=== PATIENT | male | born 1970 | race African-American/Black ===

== ENCOUNTER 2016-12-12 12:34 | Outpatient (CLI) | payer OTHER ==
--- NOTE | 2016-12-12 14:45 | MRI ---
MRI OF THE LEFT SHOULDER WITHOUT CONTRAST: Date: 12/12/16 INDICATION: Left shoulder pain for 2 months after a fall. COMPARISON: Left shoulder radiograph dated 10/29/16. TECHNIQUE: Multiplanar, multisequence MR images were obtained of the left shoulder without IV contrast. FINDINGS: Motion artifact limits image detail. The supraspinatus, infraspinatus, and teres minor are intact. The subscapularis is intact. The bicep s tendon is located. There is suggestion of some increasing synovial hypertrophy within the anterior superior aspect of the glenohumeral joint near the more medial aspect of the rotator interval and b iceps tendon. There is some subtle increased T2 signal involving the axillary pouch. No interarticul ar body is evident. There is mild AC joint osteoarthrosis. IMPRESSION: 1. Findings suspicious for adhesive capsulitis with increased T2 signal involving the axillary pouc h with some mild synovial hypertrophy seen near the medial aspect of the rotator interval. 2. The rotator cuff is intact. 3. There is mild AC joint osteoarthrosis. POS: [facility]
== END 2016-12-12 12:35 | disposition home or self-care (01) ==
LOC: SCSMRI 12:34
PROVIDERS: ATTEND Orthopaedic Surgery
DX: M25.512 Pain in left shoulder (principal); M19.012 Primary osteoarthritis, left shoulder

== ENCOUNTER 2017-04-04 09:24 | Outpatient (CLI) | payer OTHER ==
[2017-04-04 10:40] LABS: #Basophils 0.1 thou/uL (0.0-0.2); #Eosinphils 0.1 thou/uL (0.0-0.7); #Lymphocytes 1.8 thou/uL (1.20-3.40); #Monocytes 0.5 thou/uL (0.11-0.59); #Neutrophils 4.6 thou/uL (1.40-6.50); %Basophils 1.3 % (0.0-1.0); %Eosinophils 1.1 % (0.0-10.0); %Lymphocytes 25.4 % (21.0-51.0); %Monocytes 6.9 % (0.0-10.0); %Neutrophils 65.3 % (42.0-75.0); Hemoglobin 13.8 g/dL (14.0-18.0); Mean Corpuscular HGB CONC 31.9 g/dL (32.0-36.0); Mean Corpuscular Hemoglobin 27.4 pg (27.0-31.0); Mean Platelet Volume 7.6 fL (7.4-10.4); Platelet Count 294 thou/uL (130-400); RBC Distribution Width 12.3 % (11.5-14.5); Red Blood Cell (RBC) Count 5.04 mill/uL (4.70-6.10)
[2017-04-04 10:52] LABS: Anion Gap 14 mmol/L (10-20); BUN (Urea Nitrogen) 17 mg/dL (8.9-20.6); Calc. Creatinine Clearance 0 mL/min (70-130); Calcium 9.9 mg/dL (7.8-10.44); Carbon Dioxide 28 mmol/L (22-29); Chloride 100 mmol/L (98-107); Estimated GFR-MDRD 76; Glucose 215 mg/dL (70-105); Potassium 4.7 mmol/L (3.5-5.1); Sodium 137 mmol/L (136-145)
== END 2017-04-04 09:25 | disposition home or self-care (01) ==
LOC: LABBT 09:24
PROVIDERS: ATTEND Orthopaedic Surgery
DX: Z01.812 Encounter for preprocedural laboratory examination (principal); M75.02 Adhesive capsulitis of left shoulder
CPT/HCPCS: 80048; 85025

== ENCOUNTER 2017-04-12 05:48 | Day surgery (SDC) | payer OTHER ==
[2017-04-04 09:49] VITALS: BMI 33.9
[2017-04-12] MEDS ORDERED: CEFAZOLIN/Water 2 GM/20 ML SYRINGE ONE (06:12)
[2017-04-12] MEDS ORDERED: Fentanyl 100 MCG/2 ML VIAL ONE (06:41)
[2017-04-12] MEDS ORDERED: Midazolam HCl 2 mg/2 ml Vial ONE (06:41)
[2017-04-12] MEDS ORDERED: Lidocaine 1% (PF) 30 ML VIAL ONE (06:47)
[2017-04-12] MEDS ORDERED: Meperidine HCl/PF 25 MG/ML VIAL ONE (09:12)
--- NOTE | 2017-04-12 10:55 | OP ---
DATE OF PROCEDURE: 04/12/2017 PREOPERATIVE DIAGNOSIS: Frozen shoulder, left. POSTOPERATIVE DIAGNOSIS: Frozen shoulder, left. PROCEDURE: Arthroscopic subacromial decompression, arthroscopic major synovectomy and manipulation u nder anesthesia. SURGEON: Aiden Tyler M.D. ANESTHESIA: General. BLOOD LOSS: Minimal. SPECIMENS: None. DRAINS: None. COMPLICATIONS: None. PROCEDURE IN DETAIL: The patient was taken to the operating room where general anesthesia was induc ed. Exam under anesthesia, he had passive flexion to only 90, external rotation was 0 under general anesthesia with full relaxation. I inflated the shoulder and at the completion of the procedure, I w as able to flex the shoulder to 160 degrees and externally rotate 45 degrees. The patient was placed in right lateral decubitus position. Fifteen pounds of traction was applied. Left arm was prepped in the usual sterile fashion. Scope was placed in the glenohumeral joint. There was a large hematom a, this was evacuated. I released the anterior and posterior ligaments and debrided the rotator inte rval. The biceps tendon appeared to be in good shape and the rotator cuff did not appear to have any full-thickness tears. Scope was placed in the subacromial bursa. An anterior inferior acromioplast y was performed, bursectomy was performed. CA ligament was taken down. Hemostasis was obtained. Th e shoulder was then drained. Portals closed with nylon suture and sterile dressings applied. There were no complications.
[2017-04-12] MEDS ORDERED: Bupivacaine HCl 0.5%/Epinephrine 1:200,000/PF 30 ml Vial ONE (13:50)
[2017-04-12] MEDS ORDERED: Ondansetron HCl/PF 4 MG/2 ML Vial ONE (14:07)
[2017-04-12] MEDS ORDERED: Glycopyrrolate 0.2 MG/ML 5 ML SYRINGE ONE (14:07)
[2017-04-12] MEDS ORDERED: Propofol 200 MG/20 ML VIAL ONE (14:07)
[2017-04-12] MEDS ORDERED: Ketorolac Tromethamine 30 MG/ML VIAL ONE (14:07)
[2017-04-12] MEDS ORDERED: Dexamethasone 20 MG/5 ML VIAL ONE (14:07)
== END 2017-04-12 11:50 | disposition home or self-care (01) ==
LOC: SDC 05:48
PROVIDERS: ATTEND Orthopaedic Surgery
PROC: 0RBK4ZZ Excision of Left Shoulder Joint, Percutaneous Endoscopic Approach (ICD-10-PCS; principal; 2017-04-12)
DX: M75.02 Adhesive capsulitis of left shoulder (principal); Z79.82 Long term (current) use of aspirin; Z79.899 Other long term (current) drug therapy
CPT/HCPCS: 96374; G8984-GP-CK; G8985-GP-CK; G8986-GP-CK; J0670; J1100; J1885; J2001; J2175; J2250; J2405; J2704; J3010